=== PATIENT | female | born 1950 | race Caucasian/White ===

== ENCOUNTER → 2018-02-12 12:53 | Outpatient (CLI) | payer MEDICARE, OTHER, SELFPAY | PROVIDERS: Family Provider Family Medicine; PCP Family Medicine; Visit Provider Family Medicine | DX: M81.0 Age-related osteoporosis without current pathological fracture (principal); Z78.0 Asymptomatic menopausal state; Z82.62 Family history of osteoporosis | CPT/HCPCS: 77080 ==

== ENCOUNTER → 2018-03-25 12:18 | Outpatient (CLI) | payer MEDICARE, OTHER, SELFPAY ==
[2018-03-25 12:49] LABS: Add Manual Diff / Slide Review NO; Basophils Percent Auto 0.7 % (0-2); Eosinophils Percent Auto 2.1 % (2-4); Hematocrit 38.4 % (36-46); Hemoglobin 12.8 g/dL (12.0-16.0); Mean Corpuscular HGB Conc 33.4 % (30-36); Mean Corpuscular Volume 86.9 fL (80-100); Monocytes Percent Auto 4.9 % (3-14); Neutrophils Absolute Auto 2500 /uL (3000-5900); Neutrophils Percent Auto 49.3 % (50-75); Platelet Count 241 X10^3/uL (150-400); Red Blood Cell Count 4.42 X10^6/uL (4.0-5.2); Red Cell Distribution Width 15.1 % (11.6-14.8); White Blood Cell Count 5.2 X10^3/uL (4.5-11.0)
[2018-03-25 14:06] LABS: Alanine Aminotransferase 27 IU/L (9-52); Albumin 4.2 g/dL (3.5-5.0); Albumin Globulin Ratio 1.3 (1.0-2.8); Alkaline Phosphatase 76 U/L (38-126); Aspartate Aminotransferase 32 IU/L (14-36); BUN Creatinine Ratio 18.6 (6-22); Bilirubin Total 0.6 mg/dL (0.2-1.3); Blood Urea Nitrogen 13 mg/dL (7-17); Calcium 9.4 mg/dL (8.4-10.2); Carbon Dioxide 31 mmol/L (22-32); Chloride 106 mmol/L (98-107); Cholesterol 200 mg/dL (140-199); Estimated Glomerular Filt Rate > 60.0 mL/min (>60); Globulin 3.2 g/dL (1.7-4.1); Glucose 92 mg/dL (80-110); HDL Cholesterol 66 mg/dL (40-60); HEMOLYSIS < 15 (0-50); LDL Cholesterol Calculated 119 mg/dL (<100); Potassium 4.2 mmol/L (3.4-5.1); Sodium 145 mmol/L (137-145); Total Protein 7.4 g/dL (6.3-8.2); Triglycerides 77 mg/dL (35-150)
[2018-03-25 19:06] LABS: TSH w/ Reflex to FT4 1.91 uIU/mL (0.47-4.68)
== END ==
PROVIDERS: Family Provider Family Medicine; PCP Family Medicine; Visit Provider Family Medicine
DX: E78.5 Hyperlipidemia, unspecified (principal); I10 Essential (primary) hypertension
CPT/HCPCS: 36415; 80053; 80061; 84443; 85025

== ENCOUNTER 2018-09-22 12:02 | Emergency (ER) | payer MEDICARE, OTHER, SELFPAY ==
[2018-09-22 12:06] VITALS: BP 150/82; PULSE 80; RESP 18; TEMP 36.6; O2SAT 98
[2018-09-22 12:17] VITALS: PULSE 80
--- NOTE | 2018-09-22 12:38 | ED_ITS ---
HPI - Extremity Problem <ЕЛЕНА Olvera - Last Filed: 09/22/18 14:12> General Chief complaint: Extremity Problem,Nontraumatic Stated complaint: right foot 4th toe infected Time Seen by Provider: 09/22/18 12:19 Source: patient Mode of arrival: ambulatory Limitations: no limitations History of Present Illness HPI Narrative: Patient is a 68-year-old female nonsmoker with history a single abdominal surgery who takes no medication who presents for chief complaint of toe redness. she is training for a half marathon at this point time and noticed some redness in her 4th toe on her right foot starting last week. This occurred after she ripped her toenail down. She denies any fevers nausea vomiting or diarrhea. She does state that she rested her foot, started soaking it and notic ed some improvement but now is getting worse. She is worried about infection in a delay in her half marathon training. Related Data Previous Rx's Medication Instructions Recorded cephalexin 500 mg PO TID 10 Days #30 cap 09/22/18 Allergies Allergy/AdvReac Type Severity Reaction Status Date / Time No Known Drug Allergies Allergy Verified 09/22/18 12:17 Review of Systems <JELENA Olvera - Last Filed: 09/22/18 14:12> Constitutional Denies chills, Denies fever(s), Denies lethargy and Denies weakness Cardiovascular Denies chest pain, Denies irregular heart rhythm, Denies lightheadedness, Denies palpitations, Denies dyspnea, Denies dyspnea on exertion and Denies orthopnea Respiratory Denies cough, Denies dyspnea, Denies dyspnea on exertion and Denies wheezing Gastrointestinal Gastrointestinal: Denies abdominal pain, Denies change in bowel habits, Denies diarrhea, Denies nausea and Denies vomiting Musculoskeletal Reports system reviewed and no additional complaints, except as docu Integumentary/Breasts Reports system reviewed and no additional complaints, except as docu Neurologic Denies confusion and Denies weakness Psychiatric Denies anxiety, Denies confusion, Denies depression, Denies homicidal ideation and Denies suicidal ideation Endocrine Denies palpitations Allergic/Immunologic Denies wheezing PFSH <ЕЛЕНА Olvera - Last Filed: 09/22/18 14:12> Medical History Osteopenia (Chronic 1999) Osteoporosis (Chronic 1999) Tinnitus, left ear (Chronic ~1994) Chicken pox (Resolved ~1954) Measles (Resolved 1955) Mumps (Resolved 1955) Surgical History (Updated 03/29/18 @ 13:52 by Eve Phan) Anesthesia (Resolved) Status post cholecystectomy (Resolved 1984) Family History Brother Age: 67 Colon polyp Brother Age: 63 Hypertension High cholesterol Father Hypertension Heart attack Mother High cholesterol Osteoporosis Breast cancer Stroke History of TIAs History of mastectomy Brother No problems noted. Brother No problems noted. Brother No problems noted. Daughter No problems noted. Son No problems noted. Daughter No problems noted. Daughter No problems noted. Daughter No problems noted. Social History Smoking Status: Never smoker Family History Brother Age: 67 Colon polyp Brother Age: 63 Hypertension High cholesterol Father Hypertension Heart attack Mother High cholesterol Osteoporosis Breast cancer Stroke History of TIAs History of mastectomy Brother No problems noted. Brother No problems noted. Brother No problems noted. Daughter No problems noted. Son No problems noted. Daughter No problems noted. Daughter No problems noted. Daughter No problems noted. Social History Smoking Status: Never smoker Exam <ЕЛЕНА Olvera - Last Filed: 09/22/18 14:12> Initial Vital Signs Initial Vital Signs: Vital Signs Temperature 97.9 F 09/22/18 12:06 Pulse Rate 80 09/22/18 12:06 Respiratory Rate 18 09/22/18 12:06 Blood Pressure 150/82 H 09/22/18 12:06 Pulse Oximetry 98 09/22/18 12:06 Const General: cooperative and well developed Nutritional Appearance: well nourished Orientation: alert, awake, oriented x3 and not confused Chest Chest: normal inspection of the chest Resp Effort & Inspection: normal respiratory effort, able to speak in complete sentences, no respiratory distress and no use of accessory muscles Auscultation: clear to auscultation bilaterally, no rales, no rhonchi and no wheezes Cardio Rate: regular rate Rhythm: regular rhythm Heart Sounds: no click, no gallops, no murmurs and no rubs Pulses: normal peripheral pulses Skin General: erythema (noted isolated right 4th toe. slight warmth noted. no wounds rigt 4thtoe. ) Extrem Right lower extremity: normal capillary refill (+ pedal pulses. cap refill < 2 seconds right toes. ) and foot (pain to palpation right fourth toe. slight warmth noted. pain on flexion) <Chriss Solorzano DO - Last Filed: 09/22/18 15:55> Initial Vital Signs Initial Vital Signs: Vital Signs Temperature 97.9 F 09/22/18 12:06 Pulse Rate 80 09/22/18 12:06 Respiratory Rate 18 09/22/18 12:06 Blood Pressure 150/82 H 09/22/18 12:06 Pulse Oximetry 98 09/22/18 12:06 Course <SEBASTIAN Olvera-BC - Last Filed: 09/22/18 14:12> Vital Signs - 8 hr 09/22/18 12:06 09/22/18 12:17 Temperature 97.9 F Pulse Rate 80 Pulse Rate [Right Dorsalis Pedis] 80 Respiratory Rate 18 Blood Pressure 150/82 H Pulse Oximetry 98 <Chriss Solorzano DO - Last Filed: 09/22/18 15:55> Vital Signs - 8 hr 09/22/18 12:06 09/22/18 12:17 Temperature 97.9 F Pulse Rate 80 Pulse Rate [Right Dorsalis Pedis] 80 Respiratory Rate 18 Blood Pressure 150/82 H Pulse Oximetry 98 MDM - Extremity (Nontraumatic) <ЕЛЕНА Olvera - Last Filed: 09/22/18 14:12> MDM Narrative Medical decision making narrative: The patient is 5-year-old female who presents with erythema on her right 4th toe after a wound to her toe. Conservative measures have not been working. Her exam is consistent with cellulitis. Thus I am treating her with cephalexin. I discussed at length monitoring for signs of worsening including extending redness after several days of antibiotics, vomiting, diarrhea. She has no signs of systemic illness and is hemodynamically stable in the emergency department at this point time. I discussed at length following up with primary care physician if needed her coming back to the emergency department for any acute concerns. Patient has no questions or concerns upon discharge. Discharge Plan Departure Patient Disposition: Home Clinical Impression: Cellulitis Qualifiers: Site of cellulitis: extremity Site of cellulitis of extremity: toe Laterality: right Qualified Code(s): L03.031 - Cellulitis of right toe Discharge Date/Time: 09/22/18 12:52 Interventions: ED Discharge Assessment Last Done: 09/22/18 12:51 Instructions: DI for Cellulitis -- Adult Activity Restrictions/Additional Instructions: I am starting you on an antibiotic for the skin infection in your toe. Please continue to take [id number] medications as needed and able for pain. Please continue to rest her leg. Please monitor for fever, spreading of the redness after several doses of antibiotics, vomiting, diarrhea or signs of other systemic infection. Please come back to emergency department for any acute concerns and follow up with Dr. Laureano if necessary. Prescriptions: New cephalexin 500 mg capsule 500 mg PO TID 10 Days Qty: 30 RF: 0 Referrals: Valeria Laureano DO [Primary Care Provider] - <Chriss Solorzano DO - Last Filed: 09/22/18 15:55> Cosign ED Attending Durgaature Attestation: I was immediately available in the department for consultation. Documentation has been reviewed. I agree with assessment and plan.
== END 2018-09-22 12:52 | disposition home or self-care (01) ==
PROVIDERS: Emergency Provider Nurse Practitioner Family; PCP Family Medicine
DX: L03.031 Cellulitis of right toe (principal)
CPT/HCPCS: 99282; 99283

== ENCOUNTER → 2018-10-02 15:52 | Outpatient (CLI) | payer MEDICARE, OTHER, SELFPAY ==
--- NOTE | 2018-10-02 16:04 | DI.RAD.S_ITS ---
PROCEDURE: XR TOE RT MIN 2V INDICATIONS: Possibly broken toe TECHNIQUE: 3 views of the fourth toe(s) acquired. COMPARISON: None. FINDINGS: Bones: No fractures or dislocations. No suspicious bony lesions. Soft tissues: No suspicious soft tissue densities. IMPRESSION: No definite fracture found. It is unusual pain persists followup delayed plain films would be recommended. Dictated by: Felipe Hale M.D. on 10/02/2018 at 17:12 Approved by: Felipe Hale M.D. on 10/02/2018 at 17:13
== END ==
PROVIDERS: PCP Family Medicine; Visit Provider Family Medicine
DX: S92.911A Unspecified fracture of right toe(s), initial encounter for closed fracture (principal)
CPT/HCPCS: 73660

== ENCOUNTER → 2018-10-11 11:12 | Outpatient (CLI) | payer MEDICARE, OTHER, SELFPAY ==
--- NOTE | 2018-10-11 11:14 | DI.MG.S_ITS ---
BILATERAL DIGITAL SCREENING MAMMOGRAM 3D/2D WITH CAD: 10/11/2018 CLINICAL: Routine screening. Family history of breast cancer. Comparison is made to exam dated: 07/24/2014 mammogram - [facility]. There are scattered fibroglandular elements in both breasts. Current study was also evaluated with a Computer Aided Detection (CAD) system. There are benign calcifications in both breasts. No significant masses, calcifications, or other findings are seen in either breast. There has been no significant interval change. IMPRESSION: There is no mammographic evidence of malignancy. A 1 year screening mammogram is recommended. This exam was interpreted at Station ID: [id number]. NOTE: For mammograms, a report in lay terms will be sent to the patient. Approximately 15% of breast malignancies will not be visualized mammographically. In the management of a palpable breast mass, a negative mammogram must not discourage biopsy of a clinically suspicious lesion. Electronically Signed By: Leroy akins/marcus:10/11/2018 12:52:23 letter sent: Normal Exam ACR BI-RADS Category 2: Benign Finding(s) 3342F
== END ==
PROVIDERS: PCP Family Medicine; Visit Provider Family Medicine
DX: Z12.31 Encounter for screening mammogram for malignant neoplasm of breast (principal); Z80.3 Family history of malignant neoplasm of breast
CPT/HCPCS: 77063; 77067

== ENCOUNTER → 2021-07-05 09:44 | Outpatient (CLI) | payer MEDICARE, OTHER, SELFPAY ==
[2021-07-05 11:13] LABS: Alanine Aminotransferase 20 IU/L (<35); Albumin 3.8 g/dL (3.5-5.0); Albumin Globulin Ratio 1.2 (1.0-2.8); Alkaline Phosphatase 56 U/L (38-126); Aspartate Aminotransferase 28 IU/L (14-36); BUN Creatinine Ratio 22.1 (6-22); Bilirubin Total 0.6 mg/dL (0.2-1.3); Blood Urea Nitrogen 17 mg/dL (7-17); Calcium 9.2 mg/dL (8.4-10.2); Carbon Dioxide 31 mmol/L (22-32); Chloride 108 mmol/L (98-107); Cholesterol 212 mg/dL (140-199); Estimated Glomerular Filt Rate > 60.0 mL/min (>60); Globulin 3.1 g/dL (1.7-4.1); Glucose 93 mg/dL (80-110); HDL Cholesterol 70 mg/dL (40-60); HEMOLYSIS < 15 (0-50); LDL Cholesterol Calculated 129 mg/dL (<100); Potassium 4.1 mmol/L (3.4-5.1); Sodium 140 mmol/L (137-145); Total Protein 6.9 g/dL (6.3-8.2); Triglycerides 65 mg/dL (35-150)
== END ==
PROVIDERS: PCP Family Medicine; Referring Provider Family Medicine; Visit Provider Family Medicine
DX: E78.5 Hyperlipidemia, unspecified (principal); I44.4 Left anterior fascicular block; M81.0 Age-related osteoporosis without current pathological fracture; Z13.1 Encounter for screening for diabetes mellitus
CPT/HCPCS: 36415; 80053; 80061

== ENCOUNTER → 2021-07-19 14:41 | Outpatient (CLI) | payer MEDICARE, OTHER, SELFPAY | PROVIDERS: PCP Family Medicine; Referring Provider Family Medicine; Visit Provider Family Medicine | DX: Z78.0 Asymptomatic menopausal state (principal); M81.0 Age-related osteoporosis without current pathological fracture; Z82.62 Family history of osteoporosis | CPT/HCPCS: 77080 ==

== ENCOUNTER → 2021-08-11 10:08 | Outpatient (CLI) | payer MEDICARE, OTHER, SELFPAY ==
--- NOTE | 2021-08-11 | DI.MG.S_ITS ---
BILATERAL DIGITAL SCREENING MAMMOGRAM 3D/2D WITH CAD: 08/11/2021 CLINICAL: Routine screening. Family history of breast cancer. Comparison is made to exams dated: 10/11/2018 mammogram and 07/24/2014 mammogram - [facility]. There are scattered fibroglandular elements in both breasts. Current study was also evaluated with a Computer Aided Detection (CAD) system. There are benign calcifications in both breasts. No significant masses, calcifications, or other findings are seen in either breast. There has been no significant interval change. IMPRESSION: BENIGN There is no mammographic evidence of malignancy. A 1 year screening mammogram is recommended. This exam was interpreted at Station ID: [id number]. NOTE: For mammograms, a report in lay terms will be sent to the patient. Approximately 15% of breast malignancies will not be visualized mammographically. In the management of a palpable breast mass, a negative mammogram must not discourage biopsy of a clinically suspicious lesion. Electronically Signed By: Moises matos/marcus:08/11/2021 10:51:24 letter sent: Normal Exam ACR BI-RADS Category 2: Benign Finding(s) 3342F
== END ==
PROVIDERS: PCP Family Medicine; Referring Provider Family Medicine; Visit Provider Family Medicine
DX: Z12.31 Encounter for screening mammogram for malignant neoplasm of breast (principal); Z80.3 Family history of malignant neoplasm of breast
CPT/HCPCS: 77063; 77067

== ENCOUNTER → 2021-11-16 09:35 | Outpatient (CLI) | payer MEDICARE, OTHER, SELFPAY ==
[2021-11-16 10:19] LABS: COVID19 -Nasal RAPID Negative (Negative)
== END ==
PROVIDERS: PCP Family Medicine; Visit Provider Surgery
DX: Z20.822 Contact with and (suspected) exposure to COVID-19 (principal); Z01.812 Encounter for preprocedural laboratory examination
CPT/HCPCS: 87635; C9803

== ENCOUNTER 2021-11-17 09:35 | Day surgery (SDC) | payer MEDICARE, OTHER, SELFPAY ==
[2021-11-17 09:56] VITALS: BP 119/78; PULSE 82; RESP 15; TEMP 36.7; O2SAT 98; BMI 22.3
[2021-11-17] MEDS: LACTATED RINGERS 1,000 ML 200 ML IV (10:09)
--- NOTE | 2021-11-17 10:55 | P.HP_ITS ---
History of Present Illness History of Present Illness Date Patient Seen: 11/17/21 Time Patient Seen: 10:56 Chief complaint: SCREENING COLONOSCOPY Narrative: Akhil is a 71-year-old woman who has never had a colonoscopy. Patient History Medical History (Updated 11/17/21 @ 10:56 by Khoa Desouza MD) Chicken pox (~1954) Measles (1955) Mumps (1955) Osteopenia (1999) Osteoporosis (1999) Tinnitus, left ear (~1994) Surgical History (Updated 03/29/18 @ 13:52 by Eve Phan) Anesthesia Status post cholecystectomy (1984) Family & Social History Family History Brother Age: 70 Colon polyp Brother Age: 66 Hypertension High cholesterol Father Hypertension Heart attack Mother High cholesterol Osteoporosis Breast cancer Stroke History of TIAs History of mastectomy Brother No problems noted. Brother No problems noted. Brother No problems noted. Daughter No problems noted. Son No problems noted. Daughter No problems noted. Daughter No problems noted. Daughter No problems noted. Social History: household members spouse Tobacco & Substance use: Smoking Status Never smoker alcohol intake current alcohol intake frequency a few times a week Substance Use Type does not use Meds Home Medications and Allergies Home Medications Medication Instructions Recorded Confirmed Type sodium sul 1.479 gram-potas ch See Rx Instructions PO PER PKG DIR 10/24/21 Rx 0.188 gram-magnes sul 0.225 gram #24 tab tablet (Sutab) Vitamin C 1 tab PO DAILY 11/17/21 11/17/21 History Vitamin D3 1 tab PO DAILY 11/17/21 11/17/21 History Allergies Allergy/AdvReac Type Severity Reaction Status Date / Time No Known Drug Allergies Allergy Verified 07/01/21 10:27 Exam Vital Signs (past 8 hours): - 11/17/21 09:56 Temperature 98.1 F Pulse Rate 82 Respiratory Rate 15 Blood Pressure 119/78 Pulse Oximetry 98 Oxygen Delivery Method Room Air Const General: healthy appearing Resp Effort & Inspection: normal respiratory effort GI Palpation: soft Assessment & Plan Assessment and plan (1) Colon cancer screening: Status: Acute Plan We reviewed the risks and benefits of colonoscopy for colon cancer screening. She would like to proceed. COVID-19 COVID-19 status: Negative Result date/Date tested (Pos, Neg/Pending): 11/16/21 Time Spent With Patient Critical Care time: I spent a total of [] minutes of critical care time on this patient's care today; this time is exclusive of procedural time.
[2021-11-17] MEDS: fentaNYL 250 MCG/5 ML INJ 125 MCG IV (11:20)
[2021-11-17] MEDS: MIDAZOLAM 5 MG/5 ML VIAL IV (11:21)
--- NOTE | 2021-11-17 11:27 | P.OP.COLON_ITS ---
Operative Date/Time/Diagnoses Date of procedure: 11/17/21 Time of procedure: 11:27 Pre-op diagnosis: Family history of colon cancer Post-op diagnosis: same Procedure & Clinicians Study performed: Colonoscopy Same procedure as scheduled: Yes Procedure Notes Procedure in detail: Surgeon: Khoa Desouza MD Procedure: The patient was brought to the endoscopy suite, placed in left lateral decubitus position. The patient was connected to monitoring devices. A time-out was performed. Sedation was administered. Once the patient was adequately sedated, a digital rectal exam was performed and was normal. The scope was then inserted and advanced to the cecum where the appendiceal orifice was identified and photographed. The terminal ileum was intubated and abnormalities were noted. The scope was then slowly withdrawn over greater than 6 minutes. Mucosa was thoroughly inspected. There were no polyps or diver ticula. The scope was retroflexed in the rectum. There were no abnormalities other than some mild internal hemorrhoids. The scope was straightened and removed. The patient was awakened and brought to recovery. Versed: 5 mg Fentanyl: 125 mcg EBL: 0 Findings: Normal colon Scope withdrawal time: 9 Sedation minutes: 24 Post-procedure Recommendations: Colonoscopy in 5 years Disposition: PACU
[2021-11-17 11:32] VITALS: BP 118/68; PULSE 68; RESP 16; TEMP 36.9; O2SAT 100
[2021-11-17 11:36] VITALS: BP 135/75; PULSE 70; RESP 16; TEMP 36.8; O2SAT 98
[2021-11-17 11:41] VITALS: BP 122/72; PULSE 66; RESP 16; TEMP 36.3; O2SAT 98
[2021-11-17 11:52] VITALS: BP 122/75; PULSE 78; RESP 16; TEMP 36.8; O2SAT 98
== END 2021-11-17 12:05 | disposition home or self-care (01) ==
PROVIDERS: PCP Family Medicine; Referring Provider Surgery; Visit Provider Surgery
PROC: 0DJD8ZZ Inspection of Lower Intestinal Tract, Via Natural or Artificial Opening Endoscopic (ICD-10-PCS; CPT 45378; principal; 2021-11-17 10:45)
DX: Z12.11 Encounter for screening for malignant neoplasm of colon (principal); Z80.0 Family history of malignant neoplasm of digestive organs; K64.8 Other hemorrhoids
CPT/HCPCS: G0105; 99152; J2250; J3010

== ENCOUNTER → 2022-01-06 08:41 | Outpatient (CLI) | payer MEDICARE, OTHER, SELFPAY ==
--- NOTE | 2022-01-06 08:44 | DI.RAD.S_ITS ---
PROCEDURE: XR FOOT RT MIN 3V INDICATIONS: right great toe pain TECHNIQUE: <3> views of the foot were acquired. COMPARISON: None. FINDINGS: Bones: No acute fracture or dislocation. 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 Osteoarthritis also noted in the other interphalangeal joints. Trace hallux valgus alignment. Soft tissues: No tibiotalar joint effusion. Achilles tendon appears normal. 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 Other interphalangeal osteoarthritic changes also noted. Dictated by: Randall Matthew M.D. on 01/06/2022 at 11:15 Approved by: Randall Matthew M.D. on 01/06/2022 at 11:18
== END ==
PROVIDERS: PCP Family Medicine; Referring Provider Family Medicine; Visit Provider Family Medicine
DX: M79.674 Pain in right toe(s) (principal); M19.071 Primary osteoarthritis, right ankle and foot
CPT/HCPCS: 73630

== ENCOUNTER → 2022-09-26 09:12 | Outpatient (CLI) | payer MEDICARE, OTHER, SELFPAY ==
[2022-09-26 09:26] LABS: Add Manual Diff / Slide Review NO; Basophils Absolute Auto 100 /uL (0-100); Basophils Percent Auto 1.2 % (0-2); Eosinophils Absolute Auto 100 /uL (0-450); Eosinophils Percent Auto 2.1 % (2-4); Hematocrit 36.9 % (36-46); Hemoglobin 12.5 g/dL (12.0-16.0); Lymphocytes Absolute Auto 2400 /uL (1100-4500); Lymphocytes Percent Auto 51.6 % (25-40); Mean Corpuscular HGB Conc 33.8 % (30-36); Mean Corpuscular Hemoglobin 29.4 PG (26-34); Mean Corpuscular Volume 86.9 fL (80-100); Monocytes Absolute Auto 300 /uL (0-900); Neutrophils Absolute Auto 1800 /uL (1500-7000); Neutrophils Percent Auto 38.1 % (50-75); Platelet Count 217 X10^3/uL (150-400); Red Blood Cell Count 4.25 X10^6/uL (4.0-5.2); Red Cell Distribution Width 14.5 % (11.6-14.8); White Blood Cell Count 4.7 X10^3/uL (4.5-11.0)
[2022-09-26 09:39] LABS: Alanine Aminotransferase 21 IU/L (<35); Albumin 3.8 g/dL (3.5-5.0); Albumin Globulin Ratio 1.2 (1.0-2.8); Alkaline Phosphatase 56 U/L (38-126); Aspartate Aminotransferase 28 IU/L (14-36); BUN Creatinine Ratio 23.3 (6-22); Bilirubin Total 0.6 mg/dL (0.2-1.3); Blood Urea Nitrogen 17 mg/dL (7-17); Calcium 8.7 mg/dL (8.4-10.2); Carbon Dioxide 28 mmol/L (22-32); Chloride 106 mmol/L (98-107); Cholesterol 231 mg/dL (140-199); Estimated Glomerular Filt Rate > 60 mL/min (>60); Globulin 3.3 g/dL (1.7-4.1); Glucose 93 mg/dL (80-110); HDL Cholesterol 83 mg/dL (40-60); HEMOLYSIS < 15 (0-50); LDL Cholesterol Calculated 135 mg/dL (<100); Sodium 139 mmol/L (137-145); Total Protein 7.1 g/dL (6.3-8.2); Triglycerides 67 mg/dL (35-150)
== END ==
PROVIDERS: PCP Family Medicine; Referring Provider Family Medicine; Visit Provider Family Medicine
DX: E78.5 Hyperlipidemia, unspecified (principal); M79.674 Pain in right toe(s); M81.0 Age-related osteoporosis without current pathological fracture
CPT/HCPCS: 36415; 80053; 80061; 85025

== ENCOUNTER → 2023-02-21 | Outpatient (CLI) | payer MEDICARE, OTHER, SELFPAY ==
--- NOTE | 2023-02-21 15:24 | DI.MG.S_ITS ---
BILATERAL DIGITAL SCREENING MAMMOGRAM 3D/2D WITH CAD: 02/21/2023 CLINICAL: Routine screening. Family history of breast cancer. Comparison is made to exams dated: 08/11/2021 mammogram, 10/11/2018 mammogram, and 07/24/2014 mammogram - [facility]. There are scattered areas of fibroglandular density in both breasts (category b / 25%-50% glandular tissue). Current study was also evaluated with a Computer Aided Detection (CAD) system. No significant masses, calcifications, or other findings are seen in either breast. There has been no significant interval change. IMPRESSION: NEGATIVE There is no mammographic evidence of malignancy. A 1 year screening mammogram is recommended. Based on the Tyrer Cuzick model (a risk assessment model) the patient's lifetime risk is 6.5% and her 10 year risk is 6.5%. According to the ACR, ACS, and NCCN guidelines, an annual breast MRI exam along with mammogram is recommended if the patient's lifetime risk is 20% or greater. This exam was interpreted at Station ID: [id number]. NOTE: For mammograms, a report in lay terms will be sent to the patient. Approximately 15% of breast malignancies will not be visualized mammographically. In the management of a palpable breast mass, a negative mammogram must not discourage biopsy of a clinically suspicious lesion. Electronically Signed By: Pooja bonilla/:02/27/2023 09:39:31 letter sent: Normal Exam ACR BI-RADS Category 1: Negative 3341F
== END ==
LOC: MAMMO 15:23
PROVIDERS: PCP Family Medicine; Referring Provider Family Medicine; Visit Provider Family Medicine
DX: Z12.31 Encounter for screening mammogram for malignant neoplasm of breast (principal)
CPT/HCPCS: 77063; 77067

== ENCOUNTER → 2024-01-09 11:00 | Outpatient (CLI) | payer MEDICARE, OTHER, SELFPAY ==
--- NOTE | 2024-01-09 11:01 | DI.RAD.S_ITS ---
PROCEDURE: XR TOE LT MIN 2V INDICATIONS: Swollen, red, painful x 5 weeks; possible fx TECHNIQUE: 3 views of the left toe(s) acquired. COMPARISON: [facility], CR, XR TOE RT MIN 2V, 10/02/2018, 16:14. FINDINGS: Bones: The distal end of the middle phalanx of the 3rd toe is deformed. There is bone demineralization. He has findings may be related to subacute trauma. No radiopaque foreign bodies are noted. No mass lesions are seen.. Soft tissues: No suspicious soft tissue densities. IMPRESSION: Demineralization and deformity of the distal end of the middle phalanx of the 3rd toe. Findings are consistent with subacute trauma. Dictated by: Jostin Rutledge M.D. on 01/09/2024 at 12:10 Approved by: Jostin Rutledge M.D. on 01/09/2024 at 12:15
== END ==
PROVIDERS: PCP Family Medicine; Referring Provider Physician Assistant; Visit Provider Physician Assistant
DX: M20.62 Acquired deformities of toe(s), unspecified, left foot (principal); M79.675 Pain in left toe(s)
CPT/HCPCS: 73660

== ENCOUNTER → 2024-01-10 07:55 | Outpatient (CLI) | payer MEDICARE, OTHER, SELFPAY ==
[2024-01-10 08:46] LABS: Add Manual Diff / Slide Review NO; Basophils Absolute Auto 0 /uL (0-100); Basophils Percent Auto 0.6 % (0-2); Eosinophils Absolute Auto 100 /uL (0-450); Eosinophils Percent Auto 2.4 % (2-4); Hematocrit 35.4 % (36-46); Hemoglobin 11.9 g/dL (12.0-16.0); Lymphocytes Absolute Auto 2100 /uL (1100-4500); Lymphocytes Percent Auto 45.6 % (25-40); Mean Corpuscular HGB Conc 33.6 % (30-36); Mean Corpuscular Volume 86.4 fL (80-100); Monocytes Absolute Auto 300 /uL (0-900); Monocytes Percent Auto 6.1 % (3-14); Neutrophils Absolute Auto 2000 /uL (1500-7000); Neutrophils Percent Auto 45.3 % (50-75); Platelet Count 226 X10^3/uL (150-400); Red Blood Cell Count 4.09 X10^6/uL (4.0-5.2); Red Cell Distribution Width 14.4 % (11.6-14.8); White Blood Cell Count 4.5 X10^3/uL (4.5-11.0)
[2024-01-10 09:17] LABS: Alanine Aminotransferase 18 IU/L (<35); Albumin 3.8 g/dL (3.5-5.0); Albumin Globulin Ratio 1.4 (1.0-2.8); Alkaline Phosphatase 71 U/L (38-126); Aspartate Aminotransferase 29 IU/L (14-36); BUN Creatinine Ratio 21.4 (6-22); Bilirubin Total 0.6 mg/dL (0.2-1.3); Blood Urea Nitrogen 15 mg/dL (7-17); Calcium 8.7 mg/dL (8.4-10.2); Carbon Dioxide 26 mmol/L (22-32); Chloride 109 mmol/L (98-107); Cholesterol 192 mg/dL (140-199); Estimated Glomerular Filt Rate > 60 mL/min (>60); Globulin 2.8 g/dL (1.7-4.1); Glucose 92 mg/dL (80-110); HDL Cholesterol 70 mg/dL (40-60); HEMOLYSIS < 15 (0-50); LDL Cholesterol Calculated 111 mg/dL (<100); Potassium 4.4 mmol/L (3.4-5.1); Sodium 140 mmol/L (137-145); Total Protein 6.6 g/dL (6.3-8.2); Triglycerides 54 mg/dL (35-150); Uric Acid 3.6 mg/dL (2.5-6.2)
[2024-01-10 09:31] LABS: Vitamin D 25 Hydroxy (D3) 63.1 ng/mL (30.0-100.0)
[2024-01-10 12:09] LABS: TSH w/ Reflex to FT4 2.37 uIU/mL (0.47-4.68)
== END ==
PROVIDERS: PCP Family Medicine; Referring Provider Physician Assistant; Visit Provider Physician Assistant
DX: E78.5 Hyperlipidemia, unspecified (principal); M81.0 Age-related osteoporosis without current pathological fracture; M10.9 Gout, unspecified; Z13.0 Encounter for screening for diseases of the blood and blood-forming organs and certain disorders involving the immune mechanism
CPT/HCPCS: 36415; 80053; 80061; 82306; 84443; 84550; 85025

== ENCOUNTER → 2024-04-02 08:57 | Outpatient (CLI) | payer MEDICARE, OTHER, SELFPAY ==
--- NOTE | 2024-04-02 08:59 | DI.MG.S_ITS ---
BILATERAL DIGITAL SCREENING MAMMOGRAM 3D/2D WITH CAD: 04/02/2024 CLINICAL: Routine screening. Family history of breast cancer. Comparison is made to exams dated: 02/21/2023 mammogram, 08/11/2021 mammogram, and 10/11/2018 mammogram - [facility]. There are scattered areas of fibroglandular density (category b / 25%-50% glandular tissue). Current study was also evaluated with a Computer Aided Detection (CAD) system. No significant masses, calcifications, or other findings are seen in either breast. There has been no significant interval change. IMPRESSION: NEGATIVE There is no mammographic evidence of malignancy. A 1 year screening mammogram is recommended. Based on the Tyrer Cuzick model (a risk assessment model) the patient's lifetime risk is 6.0% and her 10 year risk is 0.0%. According to the ACR, ACS, and NCCN guidelines, an annual breast MRI exam along with mammogram is recommended if the patient's lifetime risk is 20% or greater. This exam was interpreted at Station ID: [id number]. NOTE: For mammograms, a report in lay terms will be sent to the patient. Approximately 15% of breast malignancies will not be visualized mammographically. In the management of a palpable breast mass, a negative mammogram must not discourage biopsy of a clinically suspicious lesion. Electronically Signed By: Leroy akins/marcus:04/02/2024 17:33:44 letter sent: Normal Exam ACR BI-RADS Category 1: Negative
[2024-04-02 10:09] LABS: Add Manual Diff / Slide Review NO; Basophils Absolute Auto 0 /uL (0-100); Basophils Percent Auto 0.6 % (0-2); Eosinophils Absolute Auto 100 /uL (0-450); Eosinophils Percent Auto 2.1 % (2-4); Hematocrit 37.8 % (36-46); Hemoglobin 12.6 g/dL (12.0-16.0); Lymphocytes Absolute Auto 2100 /uL (1100-4500); Lymphocytes Percent Auto 41.8 % (25-40); Mean Corpuscular HGB Conc 33.4 % (30-36); Mean Corpuscular Hemoglobin 29.1 PG (26-34); Mean Corpuscular Volume 87.3 fL (80-100); Monocytes Absolute Auto 300 /uL (0-900); Monocytes Percent Auto 6.7 % (3-14); Neutrophils Absolute Auto 2400 /uL (1500-7000); Neutrophils Percent Auto 48.8 % (50-75); Platelet Count 245 X10^3/uL (150-400); Red Blood Cell Count 4.33 X10^6/uL (4.0-5.2); Red Cell Distribution Width 14.9 % (11.6-14.8); White Blood Cell Count 4.9 X10^3/uL (4.5-11.0)
[2024-04-02 10:33] LABS: HEMOLYSIS < 15 (0-50); Iron 115 ug/dL (37-170)
[2024-04-02 10:49] LABS: Percent Iron Saturation 42 % (15-50); Total Iron Binding Capacity 277 ug/dL (265-497); Transferrin 228 mg/dL (206-381)
[2024-04-02 11:10] LABS: Ferritin 35 ng/mL (11-264)
== END ==
LOC: MAMMO 08:58
PROVIDERS: PCP Family Medicine; Referring Provider Family Medicine; Visit Provider Family Medicine
DX: Z12.31 Encounter for screening mammogram for malignant neoplasm of breast (principal); Z00.00 Encounter for general adult medical examination without abnormal findings; E78.5 Hyperlipidemia, unspecified; Z80.3 Family history of malignant neoplasm of breast; D64.9 Anemia, unspecified; M81.0 Age-related osteoporosis without current pathological fracture
CPT/HCPCS: 36415; 77063; 77067; 82728; 83540; 83550; 85025

== ENCOUNTER → 2025-04-21 12:30 | Outpatient (CLI) | payer MEDICARE, OTHER, SELFPAY ==
--- NOTE | 2025-04-21 12:31 | DI.RAD.S_ITS ---
PROCEDURE: XR KNEE RT 3V INDICATIONS: R knee pain; swelling possible osteoarthritis TECHNIQUE: 3 views of the knee were acquired. COMPARISON: None. FINDINGS: Moderate degenerative changes of the left knee with joint space narrowing and osteophytes in the medial, lateral and patellofemoral compartments, Kellgren Carlos grade 3. No radiographic evidence of fracture, dislocation, significant knee joint effusion or high attenuation soft tissue foreign body. Mild vascular calcifications. IMPRESSION: Degenerative changes. Dictated by: Roman Anguiano M.D. on 04/22/2025 at 12:18 Approved by: Roman Anguiano M.D. on 04/22/2025 at 12:20
== END ==
PROVIDERS: PCP Family Medicine; Referring Provider Physician Assistant; Visit Provider Physician Assistant
DX: M25.561 Pain in right knee (principal)
CPT/HCPCS: 73562